=== PATIENT | female | born 2000 | race Hispanic/Latino ===

== ENCOUNTER 2024-09-05 20:38 | Emergency (ER) | payer BC ==
[~2024-09-05] VITALS: Ht 144.8 cm; Wt 87.1 kg
[2024-09-05 21:02] LABS: BASOPHILS % 0.3 % (0.0-1.0); EOSINOPHILS # (AUTO) 0.1 (0.0-0.4); EOSINOPHILS % 0.6 % (0.0-6.0); HEMATOCRIT 42.4 % (34.2-44.1); HEMOGLOBIN 14.6 g/dL (12.0-16.0); LYMPHOCYTES # (AUTO) 1.8 (1.0-3.2); LYMPHOCYTES % 20.8 % (18.0-39.1); MEAN CORPUSCULAR HEMOGLOBIN 29.9 pg (28-32); MEAN CORPUSCULAR HGB CONC 34.4 g/dL (31-35); MEAN CORPUSCULAR VOLUME 86.7 fL (81-99); MONOCYTES # (AUTO) 0.7 (0.2-0.8); MONOCYTES % 7.9 % (4.4-11.3); NEUTROPHILS # (AUTO) 6.2 (2.1-6.9); NEUTROPHILS % 70.2 % (38.7-80.0); PLATELET COUNT 264 x10e3/uL (140-360); RED BLOOD COUNT 4.89 x10e6/uL (3.6-5.1); RED CELL DISTRIBUTION WIDTH 12.6 % (11.7-14.4); WHITE BLOOD COUNT 8.76 x10e3/uL (4.8-10.8)
[2024-09-05 21:27] LABS: CORONAVIRUS COVID-19 AG NEGATIVE (NEGATIVE); INFLUENZA A AG NEGATIVE (NEGATIVE); INFLUENZA B AG NEGATIVE (NEGATIVE)
[2024-09-05 21:35] LABS: ALBUMIN 4.5 g/dL (3.5-5.0); ALBUMIN/GLOBULIN RATIO 1.4 (0.8-2.0); ANION GAP 15.6 mmol/L (8-16); BILIRUBIN,TOTAL 0.5 mg/dL (0.2-1.2); CALCIUM 8.9 mg/dL (8.4-10.2); CREATININE, SERUM 0.76 mg/dL (0.57-1.11); POTASSIUM 3.6 mmol/L (3.5-5.1); TOTAL PROTEIN 7.8 g/dL (6.5-8.1)
[2024-09-05 21:55] VITALS: PULSE 78; RESP 22; O2SAT 96
[2024-09-05] MEDS: METHYLPREDNISOLONE SOD SUCC 125 MG/2ML VIAL IV ONE (21:55)
[2024-09-05] MEDS: SODIUM CHLORIDE 0.9% 1000ML 1,000 ML IV ONE (21:56)
[2024-09-05] MEDS: ALBUTEROL SULF 0.083% NEB SOLN 3 ML NEB NEB STA (21:58)
[2024-09-05] MEDS: IPRATROPIUM BROMIDE 0.02% 2.5 ML NEB NEB ONE (22:01)
[2024-09-05 22:13] VITALS: PULSE 93; RESP 23
[2024-09-05] MEDS: KETOROLAC TROMETHAMINE 30 MG/ML VIAL IV STA (22:13)
[2024-09-06] MEDS ORDERED: AZITHROMYCIN250 MG PO (00:09)
[2024-09-06] MEDS ORDERED: MEDROL4 M2 PO (00:09)
[2024-09-06] MEDS ORDERED: VENTOLIN HFA18 GM INH (00:09)
[2024-09-06 00:17] VITALS: PULSE 81; RESP 16; TEMP 98.3; O2SAT 96
== END 2024-09-06 00:18 | disposition home or self-care (01) ==
LOC: ER 20:52
DX: R06.02 Shortness of breath (principal); J20.9 Acute bronchitis, unspecified; R05.9 Cough, unspecified; R11.2 Nausea with vomiting, unspecified; R06.2 Wheezing; E28.2 Polycystic ovarian syndrome; Z11.52 Encounter for screening for COVID-19
CPT/HCPCS: 36415; 71045; 80053; 83518; 84484; 84702; 85025; 87070; 87428; 93005; 94799; 99284; J1885; J2919; J7030